=== PATIENT | female | born 1970 ===

== ENCOUNTER 2018-07-04 16:16 | Emergency (ER) | payer OTHER ==
[2018-07-04 16:36] VITALS: BMI 22.6
[2018-07-04 16:50] VITALS: RESP 18; O2SAT 100
--- NOTE | 2018-07-04 16:51 | ED PDOC ---
Arrival/HPI - General Time Seen by Provider: 07/04/18 16:21 Historian: Patient - History of Present Illness Narrative History of Present Illness (Text): 07/04/18 16:48 47 year old female, whose past medical history includes 2 Cesarian Sections, who presents to the Emergency department complaining of intermittent abdominal pain x 4 days. Patient notes associated nausea and dizziness. Patient took chun- seltzer for the pain with minimal relief. Patient's LKMP was 06/06/18. Patient denies any fever, chills, chest pain, shortness of breath, vomiting, diarrhea, urinary symptoms, back pain, neck pain, headache, dizziness, or any other complaints. Medical Biller/Coder used for Micronesian interpretation (# [id number]). Time/Duration: < week (4 days) Symptom Onset: Gradual Symptom Course: Unchanged Activities at Onset: Light Context: Home Past Medical History - Provider Review Nursing Documentation Reviewed: Yes Family/Social History - Physician Review Nursing Documentation Reviewed: Yes Family/Social History: Unknown Family HX Allergies/Home Meds Allergies/Adverse Reactions: Allergies No Known Allergies Allergy (Verified 07/04/18 16:37) Home Medications: Home Meds Medication Instructions Recorded Confirmed No Known Home Med 07/04/18 07/04/18 Review of Systems - Physician Review All systems were reviewed & negative as marked: Yes - Review of Systems Constitutional: Normal Eyes: Normal ENT: Normal Respiratory: Normal. absent: SOB, Cough Cardiovascular: Normal. absent: Chest Pain Gastrointestinal: Abdominal Pain, Nausea. absent: Diarrhea, Vomiting Genitourinary Female: Normal. absent: Dysuria, Frequency Musculoskeletal: Normal. absent: Back Pain, Neck Pain Skin: Normal. absent: Rash Neurological: Normal. absent: Headache, Dizziness Endocrine: Normal Hemo/Lymphatic: Normal Psychiatric: Normal Physical Exam - Systems Exam Head: Present: Atraumatic, Normocephalic Pupils: Present: PERRL Extroacular Muscles: Present: EOMI Conjunctiva: Present: Normal Mouth: Present: Moist Mucous Membranes Neck: Present: Normal Range of Motion Respiratory/Chest: Present: Clear to Auscultation, Good Air Exchange. No: Respiratory Distress, Accessory Muscle Use Cardiovascular: Present: Regular Rate and Rhythm, Normal S1, S2. No: Murmurs Abdomen: Present: Tenderness (epigastric tenderness). No: Distention, Peritoneal Signs Back: Present: Normal Inspection Upper Extremity: Present: Normal Inspection. No: Cyanosis, Edema Lower Extremity: Present: Normal Inspection. No: Edema Neurological: Present: GCS=15, CN II-XII Intact, Speech Normal Skin: Present: Warm, Dry, Normal Color. No: Rashes Psychiatric: Present: Alert, Oriented x 3, Normal Insight, Normal Concentration Medical Decision Making ED Course and Treatment: 07/04/18 16:52 Impression: 47 year old female presents to the Emergency department complaining of abdominal pain x 4 days. Plan: --IVF, Zofran --labs -- Reassess and disposition Progress Notes: 07/04/18 18:21 Labs resulted and d/w pt. Pt states she is still nauseated and now the pain is constant. Plan Pepcid, Toradol, CT abd/pelvis. - Scribe Statement The provider has reviewed the documentation as recorded by the Scribe Dayna Godoy All medical record entries made by the Scribe were at my direction and personally dictated by me. I have reviewed the chart and agree that the record accurately reflects my personal performance of the history, physical exam, medical decision making, and the department course for this patient. I have also personally directed, reviewed, and agree with the discharge instructions and disposition. Disposition/Present on Arrival - Present on Arrival Any Indicators Present on Arrival: No History of DVT/PE: No History of Uncontrolled Diabetes: No Urinary Catheter: No History of Decub. Ulcer: No - Disposition Have Diagnosis and Disposition been Completed?: No Diagnosis: Abdominal pain Disposition Time: 18:30 Patient Problems: Current Active Problems Problem Status Onset Abdominal pain Acute Condition: STABLE Discharge Instructions (ExitCare): Acute Abdomen (Belly Pain), Adult (DC) Print Language: BENGALI Additional Instructions: PRISCILA ALSTON, thank you for letting us take care of you today. Your provider was Gabbi Winn MD and you were treated for STOMACH PAIN. The emergency medical care you received today was directed at your acute symptoms. If you were prescribed any medication, please fill it and take as directed. It may take several days for your symptoms to resolve. Return to the Emergency Department if your symptoms worsen, do not improve, or if you have any other problems. Please contact your doctor or call one of the physicians/clinics you have been referred to that are listed on the Patient Visit Information form that is included in your discharge packet. Bring any paperwork you were given at discharge with you along with any medications you are taking to your follow up visit. Our treatment cannot replace ongoing medical care by a primary care provider outside of the emergency department. Thank you for allowing the [facility] team to be part of your care today. If you had an X-Ray or CT scan: A Radiologist will review the ED reading if any change in treatment is needed we will contact you. If you had a blood, urine, or wound culture: It will take several days for the results, if any change in treatment is needed we will contact you. If you had an STI test: It will take 48 hours for the results. Please call after 1 week if you have not heard back. Referrals: Holly Dexter MD [Medical Doctor] - Follow up with primary [facility] [Outside] - Follow up with primary [facility] [Outside] - Follow up with primary Forms: [employer] (Micronesian) Physician Patient Turnover - . Patient Signed Over To: Mike Reina Handoff Comments: Pending CT abd/pelvis, reassessment and dispo.
[2018-07-04] MEDS ORDERED: Sodium Chloride 0.9% 1,000 ML IV STA (16:52)
[2018-07-04 17:10] LABS: PH,URINE 6.5 (4.7-8.0); URINE APPEARANCE SLIGHT-CLOUDY (CLEAR); URINE BILIRUBIN NEGATIVE (NEGATIVE); URINE BLOOD TRACE-INTACT (NEGATIVE); URINE COLOR YELLOW (YELLOW); URINE GLUCOSE (UA) NEGATIVE (NEGATIVE); URINE LEUKOCYTE ESTERASE TRACE Leu/uL (NEGATIVE); URINE PROTEIN NEGATIVE mg/dL (<30 mg/dL); URINE UROBILINOGEN 0.2 E.U./dL (<1 E.U./dL)
[2018-07-04 17:15] LABS: BASO # 0.02 K/mm3 (0.0-2.0); BASO % 0.2 % (0.0-3.0); EOS # 0.2 (0.0-0.7); EOS % 1.5 % (1.5-5.0); GRAN # 6.79 (1.4-6.5); GRAN % 60.6 % (50.0-68.0); HEMOGLOBIN 15.8 g/dL (12.0-16.0); LYMPH # 3.6 (1.2-3.4); LYMPH % 32.3 % (22.0-35.0); MEAN CELL VOLUME 93.8 fl (80.0-105.0); MEAN CORPUSCULAR HEMOGLOBIN 31.5 pg (25.0-35.0); MEAN CORPUSCULAR HGB CONC 33.6 g/dl (31.0-37.0); MEAN PLATELET VOLUME 10.1 fl (7.0-11.0); MONO # 0.6 (0.1-0.6); MONO % 5.4 % (1.0-6.0); RBC 5.01 10^6/uL (3.5-6.1); WHITE BLOOD COUNT 11.2 10^3/uL (4.5-11.0)
[2018-07-04 17:18] LABS: URINE BACTERIA TRACE /hpf; URINE RBC 0 - 2 /hpf (0-2)
[2018-07-04 17:24] LABS: ALB/GLOB RATIO 1.2 (1.1-1.8); ALBUMIN 4.5 g/dL (3.0-4.8); ALT/SGPT 31 U/L (7-56); AST/SGOT 22 U/L (14-36); BLOOD UREA NITROGEN 14 mg/dL (7-21); CALCIUM 9.9 mg/dL (8.4-10.5); GFR NON-AFRICAN AMERICAN > 60; LIPASE 94 U/L (23-300)
[2018-07-04 18:28] VITALS: TEMP 98.1
[2018-07-04] MEDS ORDERED: Iohexol 350 MG/100 ML VIAL ONE (18:50)
--- NOTE | 2018-07-04 19:40 | ED PDOC ---
Physical Exam Vital Signs Temp Pulse Resp BP Pulse Ox 07/04/18 18:27 98.1 F 91 H 18 134/73 100 07/04/18 16:37 98.2 F 105 H 18 123/84 100 Temperature: Afebrile Blood Pressure: Normal Pulse: Tachycardic Respiratory Rate: Normal Appearance: Positive for: Well-Appearing, Non-Toxic Pain Distress: None Mental Status: Positive for: Alert and Oriented X 3 - Systems Exam Head: Present: Atraumatic, Normocephalic Pupils: Present: PERRL Extroacular Muscles: Present: EOMI Conjunctiva: Present: Normal Ears: Present: Normal Mouth: Present: Moist Mucous Membranes Neck: Present: Normal Range of Motion. No: Meningeal Signs Respiratory/Chest: Present: Clear to Auscultation Cardiovascular: Present: Regular Rate and Rhythm, Normal S1, S2. No: Murmurs Abdomen: Present: Tenderness (epigastric). No: Distention, Normal Bowel Sounds, Peritoneal Signs Rectal: No: Occult Blood Back: Present: Normal Inspection. No: CVA Tenderness Upper Extremity: Present: Normal Inspection, Normal ROM, Neurovascularly Intact. No: Cyanosis, Edema Lower Extremity: Present: Normal Inspection, Normal ROM, Neurovascularly Intact. No: Edema, CALF TENDERNESS Neurological: Present: GCS=15, CN II-XII Intact, Speech Normal Skin: Present: Warm, Dry. No: Rashes Psychiatric: Present: Alert, Oriented x 3, Normal Insight Medical Decision Making ED Course and Treatment: 07/04/18 19:38 Recieved sign out from Dr. Winn 47 yr old F p/w abdominal pain, Pending CT labs so far per previous team unremarkable. Pt in NAD CT resulted IMPRESSION: No acute intra-abdominal abnormality. There is some cystic changes small amount of fluid at the left adnexal region of the pelvis for which correlation with ultrasound examination of the pelvis advised. Electronically signed on Jul 04, 2018 7:29:29 PM EST by: Bobby Dailey M.D., Certified by ABR, Diagnostic Radiology Transvaginal US ordered 07/04/18 21:14 Pending US result pt in NAD Transvaginal Ultrasound Impression 1. Free fluid is seen in the cul-de-sac. 2. Left ovarian complex cyst. Consider follow up study in 1-2 menstrual cycles. 3. Right ovary is not visualized. Electronically signed on Jul 04, 2018 9:33:49 PM EST by: Vinny Castaneda M.D., MBA Certified By ABR & [facility] Fellowship Trained MRI and CT Specialist 07/04/18 22:51 Explained findings w/ bella SCRIBE No vaginal complaints, no vaginal d/c Epigastric pain resolved abd non-ttp in NAd with VSS. no CP likely gastritis vs ovarian cyst pain clear for d/c home- pt agreeable to plan. - Lab Interpretations Lab Results: 07/04/18 17:03 07/04/18 17:03 Lab Results 07/04/18 17:03: Sodium 139, Potassium 4.6, Chloride 104, Carbon Dioxide 28, Anion Gap 12, BUN 14, Creatinine 0.8, Est GFR ( Amer) > 60, Est GFR (Non-Af Amer) > 60, Random Glucose 111 H, Calcium 9.9, Magnesium 2.0, Total Bilirubin 0.3, AST 22, ALT 31, Alkaline Phosphatase 58, Total Protein 8.2, Albumin 4.5, Globulin 3.7, Albumin/Globulin Ratio 1.2, Lipase 94 07/04/18 17:03: WBC 11.2 H, RBC 5.01, Hgb 15.8, Hct 47.0, MCV 93.8, MCH 31.5, MCHC 33.6, RDW 14.0, Plt Count 254, MPV 10.1, Gran % 60.6, Lymph % (Auto) 32.3, Ceiba % (Auto) 5.4, Eos % (Auto) 1.5, Baso % (Auto) 0.2, Gran # 6.79 H, Lymph # (Auto) 3.6 H, Ceiba # (Auto) 0.6, Eos # (Auto) 0.2, Baso # (Auto) 0.02 07/04/18 16:50: Urine Color Yellow, Urine Appearance Slight-cloudy, Urine pH 6.5, Ur Specific [place] 1.020, Urine Protein Negative, Urine Glucose (UA) Negative, Urine Ketones Negative, Urine Blood Trace-intact H, Urine Nitrate Negative, Urine Bilirubin Negative, Urine Urobilinogen 0.2, Ur Leukocyte Esterase Trace H, Urine RBC 0 - 2, Urine WBC 1 - 3, Ur Epithelial Cells 4 - 5, Urine Bacteria Trace - RAD Interpretation Radiology Orders: 07/04/18 18:27 ABD & PELVIS IV CONTRAST ONLY [CT] Stat 07/04/18 19:37 TRANSVAGINAL [US] Stat - Medication Orders Current Medication Orders: Discontinued Medications Famotidine (Pepcid) 20 mg IVP STAT STA Stop: 07/04/18 18:26 Last Admin: 07/04/18 18:31 Dose: 20 mg IVP Administration Document 07/04/18 18:31 LA (Rec: 07/04/18 18:31 LA [id number]) Charges for Administration # of IVP Administrations 1 Sodium Chloride (Sodium Chloride 0.9%) 1,000 mls @ 1,000 mls/hr IV .Q1H STA Stop: 07/04/18 17:51 Last Admin: 07/04/18 17:11 Dose: 1,000 mls/hr eMAR Start Stop Document 07/04/18 17:11 LA (Rec: 07/04/18 17:11 [id number] Intravenous Solution Start Date 07/04/18 Start Time 17:11 End Date 07/04/18 End time 18:11 Total Infusion Time 60 Ketorolac Tromethamine (Toradol) 15 mg IVP STAT STA Stop: 07/04/18 18:27 Last Admin: 07/04/18 18:32 Dose: 15 mg MAR Pain Assessment Document 07/04/18 18:32 LA (Rec: 07/04/18 18:32 LA [id number]) Pain Reassessment Is this a pain reassessment? No IVP Administration Document 07/04/18 18:32 LA (Rec: 07/04/18 18:32 LA [id number]) Charges for Administration # of IVP Administrations 1 Ondansetron HCl (Zofran Inj) 4 mg IVP STAT STA Stop: 07/04/18 16:53 Last Admin: 07/04/18 17:11 Dose: 4 mg IVP Administration Document 07/04/18 17:11 LA (Rec: 07/04/18 17:11 [id number] Charges for Administration # of IVP Administrations 1 Disposition/Present on Arrival - Present on Arrival Any Indicators Present on Arrival: No History of DVT/PE: No History of Uncontrolled Diabetes: No Urinary Catheter: No History of Decub. Ulcer: No History Surgical Site Infection Following: None - Disposition Have Diagnosis and Disposition been Completed?: Yes Diagnosis: Abdominal pain, Gastritis, Ovarian cyst Disposition: HOME/ ROUTINE Disposition Time: 22:57 Condition: STABLE Discharge Instructions (ExitCare): Acute Abdomen (Belly Pain), Adult (DC), Ovarian Cyst (DC), Stomach Ache and Stomach Upset Print Language: POLISH Additional Instructions: SEE A OBGYN IN CLINIC, STOMACH DOCTOR AND YOUR PRIMARY CARE DOCTOR. RETURN IF YOU HAVE ANY NEW ISSUES OR WORSENING PAIN PRISCILA ALSTON, thank you for letting us take care of you today. Your provider was Gabbi Winn MD and you were treated for STOMACH PAIN. The emergency medical care you received today was directed at your acute symptoms. If you were prescribed any medication, please fill it and take as directed. It may take several days for your symptoms to resolve. Return to the Emergency Department if your symptoms worsen, do not improve, or if you have any other problems. Please contact your doctor or call one of the physicians/clinics you have been referred to that are listed on the Patient Visit Information form that is included in your discharge packet. Bring any paperwork you were given at discharge with you along with any medications you are taking to your follow up visit. Our treatment cannot replace ongoing medical care by a primary care provider outside of the emergency department. Thank you for allowing the [facility] team to be part of your care today. If you had an X-Ray or CT scan: A Radiologist will review the ED reading if any change in treatment is needed we will contact you. If you had a blood, urine, or wound culture: It will take several days for the results, if any change in treatment is needed we will contact you. If you had an STI test: It will take 48 hours for the results. Please call after 1 week if you have not heard back. Prescriptions: Famotidine [Pepcid] 20 mg PO Q12H PRN 4 Days #8 tab PRN Reason: Pain, Moderate (4-7) Referrals: [facility] [Outside] - Follow up with primary [facility] [place]Outside] - Follow up with primary Holly Dexter MD [Medical Doctor] - Follow up with primary Christiano Lyman MD [Staff Provider] - Follow up with primary [facility] [Outside] - Follow up with primary Forms: [employer] (English)
[2018-07-04 23:14] VITALS: BP 125/78; PULSE 85
--- NOTE | 2018-07-05 08:58 | CT ---
Date of service: 07/04/2018 PROCEDURE: CT Abdomen and Pelvis with contrast HISTORY: abd pain COMPARISON: None. TECHNIQUE: Contrast dose: Radiation dose: Total exam DLP = 539.05 mGy-cm. This CT exam was performed using one or more of the following dose reduction techniques: Automated exposure control, adjustment of the mA and/or kV according to patient size, and/or use of iterative reconstruction technique. FINDINGS: LOWER THORAX: Unremarkable. LIVER: Unremarkable. No gross lesion or ductal dilatation. GALLBLADDER AND BILE DUCTS: Unremarkable. PANCREAS: Unremarkable. No gross lesion or ductal dilatation. SPLEEN: Unremarkable. ADRENALS: Unremarkable. No mass. KIDNEYS AND URETERS: Unremarkable. No hydronephrosis. No solid mass. VASCULATURE: Unremarkable. No aortic aneurysm. No aortic atherosclerotic calcification or mural plaque present. BOWEL: Unremarkable. No obstruction. No gross mural thickening. APPENDIX: Normal appendix. PERITONEUM: Unremarkable. No free fluid. No free air. LYMPH NODES: Unremarkable. No enlarged lymph nodes. BLADDER: Unremarkable. REPRODUCTIVE: 2 centimeter left ovarian cystic lesion for which follow-up pelvic ultrasound in 2-3 menstrual cycles/months is recommended to document resolution. BONES: No acute fracture. OTHER FINDINGS: None. IMPRESSION: 2 centimeter left ovarian cystic lesion for which follow-up pelvic ultrasound in 2-3 menstrual cycles/months is recommended to document resolution.
--- NOTE | 2018-07-05 10:52 | US ---
Date of service: 07/04/2018 HISTORY: abd pain COMPARISON: None available. TECHNIQUE: Transvaginal FINDINGS: UTERUS: Measures 6.9 x 2.4 x 3.6 cm. Normal in size and appearance. No fibroid or other mass lesion seen. ENDOMETRIUM: Measures 15 mm in diameter. Unremarkable. CERVIX: No cervical abnormality identified. RIGHT OVARY: Not visualized LEFT OVARY: Measures 2.8 x 1.8 x 4.0 cm. No solid mass. Normal flow. Complex cysts measuring 2.1 x 1.8 x 2.1 cm thick septations are seen FREE FLUID: Small amount of free fluid in the cul-de-sac OTHER FINDINGS: None. IMPRESSION: Complex cyst in the left ovary with thick-walled septations. Follow-up is recommended in several months
== END 2018-07-04 23:25 | disposition home or self-care (01) ==
LOC: ED 16:16
DX: K29.70 Gastritis, unspecified, without bleeding (principal); N83.202 Unspecified ovarian cyst, left side; R10.9 Unspecified abdominal pain
CPT/HCPCS: 74177; 76830; 80053; 81001; 83690; 83735; 85025; 87086; 96361; 96374; 96375; 99283; J1885; J2405; J7030; Q9967